=== PATIENT | male | born 2000 | race Caucasian/White ===

== ENCOUNTER 2022-09-14 03:08 | Inpatient (IN) ==
[2022-09-14] MEDS ORDERED: Droperidol 5 MG/2 ML 2 ML VIAL IM ONE (03:53)
[2022-09-14] MEDS ORDERED: Lactated Ringers 1000 ml BAG 1,000 ML IV ONE (03:53)
[2022-09-14] MEDS ORDERED: Droperidol 5 MG/2 ML 2 ML VIAL ONE (03:53)
[2022-09-14 04:52] LABS: ABS Lymphocytes 2.4 10^3/ul (1.0-4.8); ABS Monocytes 0.7 10^3/ul (0-0.8); ABS Neutrophils 5.3 10^3/ul (1.5-7.7); Eosinophil % 0.4 %; Hematocrit 43 % (42-52); Hemoglobin 14.1 g/dL (14.0-18.0); Lymphocyte % 28.1 %; Mean Corpuscular HGB Conc 33 g/dL (31-36); Mean Corpuscular Hemoglobin 29 pg (27-31); Mean Corpuscular Volume 90 fL (80-94); Mean Platelet Volume 8.4 fL (7.4-10.4); Platelet Count 220 10^3/uL (150-450); Red Blood Count 4.81 10^6 /uL (4.18-5.48); Red Cell Distribution Width 14 % (10-15); White Blood Count 8.4 10^3/uL (3.5-10.8)
[2022-09-14 05:42] LABS: Albumin 4.8 g/dL (3.2-5.2); Albumin/Globulin Ratio 2.2 (1-3); Calcium 9.4 mg/dL (8.6-10.3); Globulin 2.2 g/dL (2-4); Potassium 4.1 mmol/L (3.5-5.0); Total Bilirubin 0.3 mg/dL (0.2-1.0); eGFR CKD-EPI 136.5 (>60)
[2022-09-14] MEDS ORDERED: Al Hydrox/Mg Hydrox/Simet LIQ 30 ML UDC PO PRN (12:47)
[2022-09-15 08:34] LABS: HDL Cholesterol 47.2 mg/dL
[2022-09-15] MEDS ORDERED: LORazepam 2 mg VIAL 1 ml ONE (09:43)
[2022-09-15] MEDS: Nicotine GUM 2MG FRUIT FLAVOR PO PRN ×5 (12:20→21:36)
[2022-09-15] MEDS: Nicotine PATCH 14 MG/24 HR PATCH TRANSDERM SCH (12:40)
[2022-09-16] MEDS: Nicotine GUM 2MG FRUIT FLAVOR PO PRN ×2 (08:47→11:11)
[2022-09-16] MEDS: Nicotine PATCH 14 MG/24 HR PATCH TRANSDERM SCH (08:48)
[2022-09-16] MEDS: Nicotine Lozenge mini 4 MG LOZNG.MINI MT PRN ×4 (13:26→20:48)
[2022-09-17] MEDS: Nicotine PATCH 14 MG/24 HR PATCH TRANSDERM SCH (08:05)
[2022-09-17] MEDS: Nicotine Lozenge mini 4 MG LOZNG.MINI MT PRN ×7 (08:05→21:12)
[2022-09-18] MEDS: Nicotine Lozenge mini 4 MG LOZNG.MINI MT PRN ×7 (07:28→22:41)
[2022-09-18 08:28] VITALS: BP 117/76
[2022-09-18] MEDS: Nicotine PATCH 14 MG/24 HR PATCH TRANSDERM SCH (12:02)
[2022-09-19] MEDS: Nicotine Lozenge mini 4 MG LOZNG.MINI MT PRN (08:40)
[2022-09-19] MEDS: Nicotine PATCH 14 MG/24 HR PATCH TRANSDERM SCH (10:24)
== END 2022-09-19 09:30 | DRG 897 ==
LOC: EDBD → ED 03:08 → EDHOLD 12:47 → BSU 16:49
PROVIDERS: ADMIT Psychiatry & Neurology Psychiatry; ATTEND Psychiatry & Neurology Psychiatry